=== PATIENT | female | born 1995 | race Hispanic/Latino ===

== ENCOUNTER 2019-03-26 23:19 | Emergency (ER) | payer OTHER ==
[2019-03-27] MEDS ORDERED: KETOROLAC 30 MG/ML INJ ONE (00:02)
[2019-03-27] MEDS ORDERED: dexAMETHasone 10 MG/ML VIAL ONE (00:02)
--- NOTE | 2019-03-27 01:46 | ER ---
Nurse's Notes [facility] Name: Leighann Greenwood Age: 23 yrs Sex: Female : 1995 Arrival Date: 03/26/2019 Time: 23:25 Bed 18 Private MD: Diagnosis: Pain in left lower leg Presentation: 03/26 23:31 Presenting complaint: Patient states: [place] when she tried to ea jump on a tube and felt like she pulled something on her left calf. Pt reports swelling and pain to left calf states "it feels like it's tight and wants to cramp". Transition of care: patient was not received from another setting of care. Onset of symptoms was March 26, 2019. Risk Assessment: Do you want to hurt yourself or someone else? Patient reports no desire to harm self or others. Initial Sepsis Screen: Does the patient meet any 2 criteria? No. Patient's initial sepsis screen is negative. Does the patient have a suspected source of infection? No. Patient's initial sepsis screen is negative. Care prior to arrival: None. 23:31 Method Of Arrival: Ambulatory ea 23:31 Acuity: DUSTY 4 ea Triage Assessment: 23:42 General: Appears uncomfortable, Behavior is appropriate for age. Injury Description: ea swelling to left calf. Historical: - Allergies: 23:39 Azo; ea - Home Meds: 23:39 None [Active]; ea - PMHx: 23:39 None; ea - PSHx: 23:39 None; ea - Immunization history:: Adult Immunizations up to date. - Social history:: Smoking status: Patient/guardian denies using tobacco. - Ebola Screening: : No symptoms or risks identified at this time. Screenin:36 Abuse screen: Denies threats or abuse. Nutritional screening: No deficits noted. ea Tuberculosis screening: No symptoms or risk factors identified. Fall Risk None identified. Assessment: 23:40 General: Appears uncomfortable, Behavior is appropriate for age. Pain: Complains of ea pain in left calf. Neuro: Level of Consciousness is awake, alert, obeys commands, Oriented to person, place, time, situation. Cardiovascular: Patient's skin is warm and dry. Respiratory: Airway is patent Respiratory effort is even, unlabored, Respiratory pattern is regular, symmetrical. Derm: Skin is pink, warm \\T\\ dry. Musculoskeletal: Circulation, motion, and sensation intact. 03/27 00:53 Reassessment: Patient and/or family updated on plan of care and expected duration. Pain ea level reassessed. Patient is alert, oriented x 3, equal unlabored respirations, skin warm/dry/pink. 01:50 Reassessment: Patient and/or family updated on plan of care and expected duration. Pain ea level reassessed. Patient is alert, oriented x 3, equal unlabored respirations, skin warm/dry/pink. Discharge instruction given to patient, verbalized the understanding of instruction. Pt left ED with crutches, pt tolerating well. Vital Signs: 03/26 23:39 BP 139 / 82; Pulse 82; Resp 18; Temp 98.3; Pulse Ox 97% ; Weight 104.33 kg; Height 5 ea ft. 6 in. (167.64 cm); Pain 9/10; 03/27 00:53 BP 117 / 78; Pulse 80; Resp 18; Pulse Ox 98% ; ea 01:45 BP 113 / 74; Pulse 82; Resp 18; Temp 98; Pulse Ox 98% ; ea 03/26 23:39 Body Mass Index 37.12 (104.33 kg, 167.64 cm) ea ED Course: 03/26 23:25 Patient arrived in ED. ag3 23:29 Barry Aguillon NP is PHCP. pm1 23:29 Migel Denson MD is Attending Physician. pm1 23:31 Brittany Reynolds RN is Primary Nurse. ea 23:36 Triage completed. ea 23:36 Patient has correct armband on for positive identification. Bed in low position. Call ea light in reach. Side rails up X2. 23:41 Arm band placed on right wrist. Patient placed in an exam room, on a stretcher, on ea pulse oximetry. 03/27 00:47 X-ray completed. Portable x-ray completed in exam room. Patient tolerated procedure kw well. 01:15 Tib Fib Left XRAY In Process Unspecified. EDMS 01:52 No provider procedures requiring assistance completed. Patient did not have IV access ea during this emergency room visit. Administered Medications: 00:24 Drug: TORadol 60 mg Route: IM; Site: right gluteus; ea 01:52 Follow up: Response: No adverse reaction; Pain is decreased ea 00:24 Drug: Decadron 10 mg Route: IM; Site: left gluteus; ea 01:52 Follow up: Response: No adverse reaction; Pain is decreased ea Outcome: 01:30 Discharge ordered by . pm1 01:52 Discharged to home ambulatory, with crutches. ea 01:52 Condition: stable 01:52 Discharge instructions given to patient, Instructed on discharge instructions, follow up and referral plans. medication usage, Demonstrated understanding of instructions, follow-up care, medications, Prescriptions given X 3. 01:55 Patient left the ED. ea Signatures: Dispatcher [employer] EDMS Bekah Olmstead Patrick, LUPILLO CONTROL DIRECTOR pm1 Brittany Reynolds RN RN Kavya Elliott ag3 Corrections: (The following items were deleted from the chart) 00:53 00:50 Reassessment: Patient and/or family updated on plan of care and expected ea duration. Pain level reassessed. Patient is alert, oriented x 3, equal unlabored respirations, skin warm/dry/pink. Awaiting on CT results ea
--- NOTE | 2019-03-27 01:47 | EDPHYS ---
Physician Documentation [facility] Name: Leighann Greenwood Age: 23 yrs Sex: Female : 1995 Arrival Date: 03/26/2019 Time: 23:25 Bed 18 Private MD: ED Physician Migel Denson HPI: 03/27 00:01 This 23 yrs old Female presents to ER via Ambulatory with complaints of Left pm1 Leg Injury. 00:01 The patient presents with pain, that is acute. The complaints affect the left calf. pm1 Context: The problem was sustained outdoors, resulted from Patient sitting on inner tube and attempted to adjust her self on it by kicking out her legs. [place] a pop on her left calf area. Onset: The symptoms/episode began/occurred today. Modifying factors: the symptoms are aggravated by weight bearing. Associated signs and symptoms: Pertinent negatives fever, numbness, swelling, tingling. Treatment prior to arrival includes: no previous treatment. Severity of symptoms: in the emergency department the symptoms are unchanged. The patient has not experienced similar symptoms in the past. The patient has not recently seen a physician. Historical: - Allergies: 03/26 23:39 Azo; ea - Home Meds: 23:39 None [Active]; ea - PMHx: 23:39 None; ea - PSHx: 23:39 None; ea - Immunization history:: Adult Immunizations up to date. - Social history:: Smoking status: Patient/guardian denies using tobacco. - Ebola Screening: : No symptoms or risks identified at this time. ROS: 03/27 00:06 Constitutional: Negative for fever, chills, and weight loss, Eyes: Negative for injury, pm1 pain, redness, and discharge, ENT: Negative for injury, pain, and discharge, Neck: Negative for injury, pain, and swelling, Cardiovascular: Negative for chest pain, palpitations, and edema, Respiratory: Negative for shortness of breath, cough, wheezing, and pleuritic chest pain, Abdomen/GI: Negative for abdominal pain, nausea, vomiting, diarrhea, and constipation, Back: Negative for injury and pain. Skin: Negative for injury, rash, and discoloration, Neuro: Negative for headache, weakness, numbness, tingling, and seizure. MS/extremity: Positive for pain, of the left calf, Negative for decreased range of motion, deformity. Exam: 00:06 Constitutional: This is a well developed, well nourished patient who is awake, alert, pm1 and in no acute distress. Head/Face: Normocephalic, atraumatic. Neck: Trachea midline, no thyromegaly or masses palpated, and no cervical lymphadenopathy. Supple, full range of motion without nuchal rigidity, or vertebral point tenderness. No Meningismus. Chest/axilla: Normal chest wall appearance and motion. Nontender with no deformity. No lesions are appreciated. Cardiovascular: Regular rate and rhythm with a normal S1 and S2. No gallops, murmurs, or rubs. Normal PMI, no JVD. No pulse deficits. Respiratory: Lungs have equal breath sounds bilaterally, clear to auscultation and percussion. No rales, rhonchi or wheezes noted. No increased work of breathing, no retractions or nasal flaring. Abdomen/GI: Soft, non-tender, with normal bowel sounds. No distension or tympany. No guarding or rebound. No evidence of tenderness throughout. Back: No spinal tenderness. No costovertebral tenderness. Full range of motion. Skin: Warm, dry with normal turgor. Normal color with no rashes, no lesions, and no evidence of cellulitis. 00:06 Musculoskeletal/extremity: Extremities: grossly normal except: noted in the left calf: tenderness, There is no evidence of decreased ROM, deformity, swelling, ROM: no acute changes, Circulation is intact in all extremities. Vital Signs: 03/26 23:39 BP 139 / 82; Pulse 82; Resp 18; Temp 98.3; Pulse Ox 97% ; Weight 104.33 kg; Height 5 ea ft. 6 in. (167.64 cm); Pain 9/10; 03/27 00:53 BP 117 / 78; Pulse 80; Resp 18; Pulse Ox 98% ; ea 01:45 BP 113 / 74; Pulse 82; Resp 18; Temp 98; Pulse Ox 98% ; ea 03/26 23:39 Body Mass Index 37.12 (104.33 kg, 167.64 cm) ea MDM: 03/26 23:46 Patient medically screened. pm1 03/27 01:29 Data reviewed: vital signs. Data interpreted: Pulse oximetry: on room air is 98 %. pm1 Interpretation: normal. Counseling: I had a detailed discussion with the patient and/or guardian regarding: the historical points, exam findings, and any diagnostic results supporting the discharge/admit diagnosis, radiology results, the need for outpatient follow up, to return to the emergency department if symptoms worsen or persist or if there are any questions or concerns that arise at home. 03/27 00:33 Order name: Tib Fib Left XRAY pm1 03/27 01:36 Order name: Crutches; Complete Time: 01:52 pm1 Administered Medications: 00:24 Drug: TORadol 60 mg Route: IM; Site: right gluteus; ea 01:52 Follow up: Response: No adverse reaction; Pain is decreased ea 00:24 Drug: Decadron 10 mg Route: IM; Site: left gluteus; ea 01:52 Follow up: Response: No adverse reaction; Pain is decreased ea Disposition: 10:54 Co-signature as Attending Physician, Migel Denson MD I agree with the assessment and tw4 plan of care. Disposition: 03/27/19 01:30 Discharged to Home. Impression: Pain in left lower leg. - Condition is Stable. - Discharge Instructions: Crutch Use, Musculoskeletal Pain. - Prescriptions for Cyclobenzaprine 10 mg Oral Tablet - take 1 tablet by ORAL route every 8 hours As needed; 30 tablet. Medrol ([place]) 4 mg Oral Tablets, Dose Pack - take 1 tablet by ORAL route as directed - follow package instructions; 1 packet. Tylenol- Codeine #3 300-30 mg Oral Tablet - take 2 tablets by ORAL route every 6 hours As needed; 20 tablet. - Medication Reconciliation Form, Thank You Letter, Antibiotic Education, Prescription Opioid Use form. - Follow up: Emergency Department; When: As needed; Reason: Worsening of condition. Follow up: Private Physician; When: 2 - 3 days; Reason: Recheck today's complaints, Continuance of care, Re-evaluation by your physician. - Problem is new. - Symptoms have improved. Signatures: Dispatcher [employer] EDMS Barry Aguillon, CIGAR PATCHER CIGAR PATCHER pm1 Brittany Reynolds, RN Migel Granados ea, MD MD tw4 Corrections: (The following items were deleted from the chart) 01:55 01:30 03/27/2019 01:30 Discharged to Home. Impression: Pain in left lower leg. ea Condition is Stable. Forms are Medication Reconciliation Form, Thank You Letter, Antibiotic Education, Prescription Opioid Use. Follow up: Emergency Department; When: As needed; Reason: Worsening of condition. Follow up: Private Physician; When: 2 - 3 days; Reason: Recheck today's complaints, Continuance of care, Re-evaluation by your physician. Problem is new. Symptoms have improved. pm1
--- NOTE | 2019-03-27 10:13 | RAD REPORT ---
EXAM DESCRIPTION: RAD - Tib Fib Left - 03/27/2019 12:50 am CLINICAL HISTORY: Trauma, calf pain COMPARISON: None. FINDINGS: No fracture is identified. There is no dislocation or periosteal reaction noted. No acute or suspicious bony finding. No gross abnormality of the partially imaged knee and ankle joints. In the area of the pain posterolateral upper calf there is no foreign body, air or abnormal calcifica tion. No gross evidence of a soft tissue hematoma or mass. IMPRESSION: Negative left tibia & fibula examination. In the area of pain no gross evidence for hematoma or mass. If the patient continues to have a unexplained upper left leg pain, outpatient MRI imaging could be p erformed to evaluate for muscle or tendon injury.
== END 2019-03-27 01:55 | disposition home or self-care (01) ==
LOC: ER 23:19
DX: M79.662 Pain in left lower leg (principal); X50.9XXA Other and unspecified overexertion or strenuous movements or postures, initial encounter; Y93.89 Activity, other specified; Y92.830 Public park as the place of occurrence of the external cause
CPT/HCPCS: 73590; 96372; 99284; J1100

== ENCOUNTER 2019-04-12 17:54 | Emergency (ER) | payer OTHER ==
--- NOTE | 2019-04-12 18:28 | EDPHYS ---
Physician Documentation [facility] Name: Leighann Greenwood Age: 23 yrs Sex: Female : 1995 Arrival Date: 04/12/2019 Time: 17:57 Bed 5 Private MD: ED Physician Juan José Madison HPI: 04/12 18:25 This 23 yrs old Female presents to ER via Wheelchair with complaints of Leg kb Pain. 18:25 The patient presents with an injury, pain, tenderness. The complaints affect the left kb leg. Context: uses crutches. Onset: The symptoms/episode began/occurred 3 week(s) ago. Modifying factors: The symptoms are alleviated by nothing. the symptoms are aggravated by movement, weight bearing, bending knee. Associated signs and symptoms: The patient has no apparent associated signs or symptoms. Treatment prior to arrival includes: prescription medications, codeine, muscle relaxant. Severity of symptoms: At their worst the symptoms were moderate, in the emergency department the symptoms are unchanged. The patient has not experienced similar symptoms in the past. The patient has not recently seen a physician. Pt reports she was here 3 weeks ago and told that she tore her muscle. Sent home with medications and crutches and told to follow up with PCP. States she did follow up and he ordered a MRI but insurance wouldn't approve it. Has an appt with ortho next week but didn't want to wait any longer so she came back to see if there was anything else we could do. Historical: - Allergies: 18:20 Azo; tw2 - Home Meds: 18:20 cyclobenzaprine 10 mg Oral tab 1 tab 2 times per day [Active]; acetaminophen-codeine tw2 300-30 mg Oral tab 1 tab every 4 hours [Active]; - PMHx: 18:20 None; tw2 - PSHx: 18:20 None; tw2 - Immunization history:: Adult Immunizations. - Social history:: Smoking status: . - Ebola Screening: : Patient denies travel to an Ebola-affected area in the 21 days before illness onset. ROS: 18:24 Constitutional: Negative for fever, chills, and weight loss, Cardiovascular: Negative kb for chest pain, palpitations, and edema, Respiratory: Negative for shortness of breath, cough, wheezing, and pleuritic chest pain, Abdomen/GI: Negative for abdominal pain, nausea, vomiting, diarrhea, and constipation, Skin: Negative for injury, rash, and discoloration, Neuro: Negative for headache, weakness, numbness, tingling, and seizure. 18:24 MS/extremity: Positive for decreased range of motion, pain. Exam: 18:24 Constitutional: This is a well developed, well nourished patient who is awake, alert, kb and in no acute distress. Head/Face: Normocephalic, atraumatic. Chest/axilla: Normal chest wall appearance and motion. Nontender with no deformity. No lesions are appreciated. Cardiovascular: Regular rate and rhythm with a normal S1 and S2. No gallops, murmurs, or rubs. Normal PMI, no JVD. No pulse deficits. Respiratory: Lungs have equal breath sounds bilaterally, clear to auscultation and percussion. No rales, rhonchi or wheezes noted. No increased work of breathing, no retractions or nasal flaring. Abdomen/GI: Soft, non-tender, with normal bowel sounds. No distension or tympany. No guarding or rebound. No evidence of tenderness throughout. Skin: Warm, dry with normal turgor. Normal color with no rashes, no lesions, and no evidence of cellulitis. Neuro: Awake and alert, GCS 15, oriented to person, place, time, and situation. Cranial nerves II-XII grossly intact. Motor strength 5/5 in all extremities. Sensory grossly intact. Cerebellar exam normal. Normal gait. 18:24 Musculoskeletal/extremity: Extremities: grossly normal except: noted in the left leg: pain, ROM: limited active range of motion due to pain, in the left leg, Circulation is intact in all extremities. Sensation intact. Weight bearing: can bear weight with assistance only, uses crutch. Vital Signs: 18:18 BP 125 / 87; Pulse 90; Resp 17; Temp 97.8(TE); Pulse Ox 100% on R/A; tw2 MDM: 18:14 Patient medically screened. kb 18:23 Data reviewed: vital signs, nurses notes. Data interpreted: Pulse oximetry: on room air kb is 100 %. Interpretation: normal. Counseling: I had a detailed discussion with the patient and/or guardian regarding: the historical points, exam findings, and any diagnostic results supporting the discharge/admit diagnosis, the need for outpatient follow up, a orthopedic surgeon, to return to the emergency department if symptoms worsen or persist or if there are any questions or concerns that arise at home. Administered Medications: 18:29 Drug: [place] (7.5 mg-325 mg) 1 tabs Route: PO; sg Disposition: 04/13 06:58 Co-signature as Attending Physician, Juan José Madison MD. rn Disposition: 04/12/19 18:28 Discharged to Home. Impression: Pain in left leg. - Condition is Stable. - Discharge Instructions: Musculoskeletal Pain. - Prescriptions for orphenadrine citrate 100 mg Oral Tablet Sustained Release - take 1 tablet by ORAL route 2 times per day As needed; 20 tablet. - Medication Reconciliation Form, Thank You Letter, Antibiotic Education, Prescription Opioid Use form. - Follow up: Emergency Department; When: As needed; Reason: Worsening of condition. Follow up: Private Physician; When: 2 - 3 days; Reason: Recheck today's complaints, Continuance of care, Re-evaluation by your physician. Signatures: Deanne Stephens, MELISSA PETER-Peyman Rueda RN RN Juan José Madison MD MD rn Calderon, Audri, RN RN aa5 Shayna Arcos RN RN tw2 Corrections: (The following items were deleted from the chart) 04/12 18:56 18:28 04/12/2019 18:28 Discharged to Home. Impression: Pain in left leg. Condition is aa5 Stable. Forms are Medication Reconciliation Form, Thank You Letter, Antibiotic Education, Prescription Opioid Use. Follow up: Emergency Department; When: As needed; Reason: Worsening of condition. Follow up: Private Physician; When: 2 - 3 days; Reason: Recheck today's complaints, Continuance of care, Re-evaluation by your physician. kb
--- NOTE | 2019-04-12 18:28 | ER ---
Nurse's Notes [facility] Name: Leighann Greenwood Age: 23 yrs Sex: Female : 1995 Arrival Date: 04/12/2019 Time: 17:57 Bed 5 Private MD: Diagnosis: Pain in left leg Presentation: 04/12 18:15 Presenting complaint: Patient states: almost 3 weeks ago i came in because i was at [address] and fell into a tube and heard a pop in LEFT leg, my doctor said i had a torn muscle, my doctor told me that they needed an MRI, but my insurance will not cover it, they are having me see an occupational therapy specialist but that's in a week, i couldn't even walk with my crutches today. Transition of care: patient was not received from another setting of care. Onset of symptoms was April 12, 2019. Risk Assessment: Do you want to hurt yourself or someone else? Patient reports no desire to harm self or others. Initial Sepsis Screen: Does the patient meet any 2 criteria? No. Patient's initial sepsis screen is negative. Does the patient have a suspected source of infection? No. Patient's initial sepsis screen is negative. Care prior to arrival: None. 18:15 Method Of Arrival: Wheelchair tw2 18:15 Acuity: DUSTY 4 tw2 Triage Assessment: 18:18 General: Appears in no apparent distress. Behavior is calm, cooperative, appropriate tw2 for age. Pain: Complains of pain in left leg. Historical: - Allergies: 18:20 Azo; tw2 - Home Meds: 18:20 cyclobenzaprine 10 mg Oral tab 1 tab 2 times per day [Active]; acetaminophen-codeine tw2 300-30 mg Oral tab 1 tab every 4 hours [Active]; - PMHx: 18:20 None; tw2 - PSHx: 18:20 None; tw2 - Immunization history:: Adult Immunizations. - Social history:: Smoking status: . - Ebola Screening: : Patient denies travel to an Ebola-affected area in the 21 days before illness onset. Screenin:20 Abuse screen: Denies threats or abuse. Nutritional screening: No deficits noted. tw2 Tuberculosis screening: No symptoms or risk factors identified. Fall Risk None identified. Assessment: 18:23 General: Appears in no apparent distress. well groomed, well developed, well nourished, sg Behavior is calm, cooperative, appropriate for age. Pain: Complains of pain in left leg Quality of pain is described as aching, sharp, throbbing, Pain began. Neuro: Level of Consciousness is awake, alert, obeys commands, Oriented to person, place, time, [employer] Vendor are equal bilaterally Moves all extremities. Gait is steady, Speech is normal, Facial symmetry appears normal, Pupils are PERRLA. Cardiovascular: Patient's skin is warm and dry. Chest pain is denied. Respiratory: Airway is patent Respiratory effort is even, unlabored, Respiratory pattern is regular, symmetrical. GI: Abdomen is round non-distended, obese, Reports tolerance of fluids, tolerance of food. : No signs and/or symptoms were reported regarding the genitourinary system. EENT: No signs and/or symptoms were reported regarding the EENT system. Derm: Skin is pink, warm \T\ dry. Musculoskeletal: Circulation, motion, and sensation intact. Range of motion: limited in left knee due to pain Reports was unable to get up and around today even while using crutches. Vital Signs: 18:18 BP 125 / 87; Pulse 90; Resp 17; Temp 97.8(TE); Pulse Ox 100% on R/A; tw2 ED Course: 17:57 Patient arrived in ED. mr 18:14 Deanne Stephens [facility]-C [facility]. kb 18:14 Juan José Madison MD is Attending Physician. kb 18:18 Triage completed. tw2 18:18 Arm band placed on. tw2 18:23 Peyman Siddiqui, RN is Primary Nurse. sg 18:26 No provider procedures requiring assistance completed. Patient did not have IV access sg during this emergency room visit. Administered Medications: 18:29 Drug: [place] (7.5 mg-325 mg) 1 tabs Route: PO; sg Outcome: 18:28 Discharge ordered by . kb 18:56 Patient left the ED. aa5 Signatures: Deanne Stephens FNP-C FNP-Peyman Rueda RN RN sg Kailee Richards, DEA Tee RN aa5 Shayna Arcos RN RN tw2
[2019-04-12] MEDS ORDERED: HYDROCODONE/APAP 7.5/325 MG TAB ONE (18:29)
== END 2019-04-12 18:56 | disposition home or self-care (01) ==
LOC: ER 17:54
DX: M79.605 Pain in left leg (principal); Z88.8 Allergy status to other drugs, medicaments and biological substances
CPT/HCPCS: 99282

== ENCOUNTER 2019-05-25 23:30 | Emergency (ER) | payer OTHER ==
[2019-05-26 00:20] LABS: Urine Culture Reflex Order NOT NEEDED
[2019-05-26 00:21] LABS: Urine Bacteria >50 /HPF (<20); Urine RBC <5 /HPF (NONE SEEN)
[2019-05-26 00:35] LABS: Absolute Lymphocytes (CBC) 3.2 K/uL (0.7-4.9); Basophils % 0.3 % (0-1.3); Hematocrit 33.9 % (36.0-45.0); Lymphocytes % 31.6 % (15.3-44.8); MPV 8.5 fL (7.6-11.3); RBC Red Blood Cell Count 4.05 M/uL (3.86-4.86)
[2019-05-26] MEDS ORDERED: CEFTRIAXONE/SWI 1gm 1 GM/10 ML SYR ONE (00:38)
[2019-05-26] MEDS ORDERED: CALCIUM CARBONATE CHEW 500MG TAB ONE (01:12)
[2019-05-26 01:18] LABS: BUN Blood Urea Nitrogen 12 mg/dL (7-18); Bicarbonate 27 mmol/L (21-32); Glucose Level 102 mg/dL (74-106); Potassium 3.7 mmol/L (3.5-5.1); Sodium Level 138 mmol/L (136-145)
[2019-05-26 01:21] LABS: Urine Blood 2+ (NEG); Urine Glucose NEGATIVE (NEG); Urine Protein NEGATIVE (NEG); Urine Specific Gravity >1.030 (1.005-1.030)
--- NOTE | 2019-05-26 02:18 | ER ---
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 Denies vaginal bleeding. Reports confirmed IUP via u/s last week. States, "I was just concerned because I never had this with my other pregnancies.". Transition of care: patient was not received from another setting of care. Onset of symptoms was May 25, 2019. Risk Assessment: Do you want to hurt yourself or someone else? Patient reports no desire to harm self or others. Initial Sepsis Screen: Does the patient meet any 2 criteria? No. Patient's initial sepsis screen is negative. Does the patient have a suspected source of infection? No. Patient's initial sepsis screen is negative. Care prior to arrival: None. 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 - Social history:: Smoking status: Patient/guardian denies using tobacco. - Ebola Screening: : No symptoms or risks identified at this time. Screenin:49 Abuse screen: Denies threats or abuse. Denies injuries from another. Nutritional aa1 screening: No deficits noted. Tuberculosis screening: No symptoms or risk factors identified. Fall Risk None identified. Assessment: 23:49 General: Appears in no apparent distress. comfortable, Behavior is calm, cooperative, aa1 appropriate for age. Pain: Complains of pain in suprapubic area Pain currently is 4 out of 10 on a pain scale. Quality of pain is described as crampy, Pain began 1 hour ago. Is continuous. Neuro: Level of Consciousness is awake, alert, obeys commands, Oriented to person, place, time, situation, Moves all extremities. Full function Gait is steady. Respiratory: Airway is patent Respiratory effort is even, unlabored, Respiratory pattern is regular, symmetrical. GI: Abdomen is non-distended, Bowel sounds present X 4 quads. Abd is soft and non tender X 4 quads. Reports cramping. : Reports cramping, Denies vaginal bleeding. EENT: No signs and/or symptoms were reported regarding the EENT system. Derm: Skin is intact, is healthy with good turgor, Skin is pink, warm \\T\\ dry. Musculoskeletal: Circulation, motion, and sensation intact. Capillary refill < 3 seconds. 05/26 00:42 Reassessment: Patient appears in no apparent distress at this time. Patient and/or aa1 family updated on plan of care and expected duration. Pain level reassessed. Patient is alert, oriented x 3, equal unlabored respirations, skin warm/dry/pink. Awaiting lab results. 01:20 Reassessment: Patient appears in no apparent distress at this time. Patient and/or aa1 family updated on plan of care and expected duration. Pain level reassessed. Patient is alert, oriented x 3, equal unlabored respirations, skin warm/dry/pink. Still awaiting completed lab results. 02:20 Reassessment: Patient appears in no apparent distress at this time. No changes from ch previously documented assessment. Patient and/or family updated on plan of care and expected duration. Pain level reassessed. Patient is alert, oriented x 3, equal unlabored respirations, skin warm/dry/pink. Vital Signs: 05/25 23:46 BP 118 / 68; Pulse 82; Resp 16; Temp 97.8; Pulse Ox 100% on R/A; Weight 106.59 kg; aa1 Height 5 ft. 6 in. (167.64 cm); Pain 11/16; 05/26 00:42 BP 113 / 61; Pulse 81; Resp 16; Pulse Ox 100% on R/A; aa1 01:30 BP 105 / 64; Pulse 78; Resp 16; Pulse Ox 100% on R/A; aa1 02:20 BP 112 / 54; Pulse 72; Resp 14; Temp 98.5; Pulse Ox 99% on R/A; Pain 08/18; ch 05/25 23:46 Body Mass Index 37.93 (106.59 kg, 167.64 cm) aa1 ED Course: 05/25 23:31 Patient arrived in ED. es 23:39 Nicolle Hough [facility]-C [facility]. snw 23:39 Darrius Morris MD is Attending Physician. snw 23:43 Isabela Izaguirre, RN is Primary Nurse. aa1 23:45 Triage completed. aa1 23:46 Arm band placed on right wrist. aa1 23:49 Patient has correct armband on for positive identification. Bed in low position. Call aa1 light in reach. Pulse ox on. NIBP on. 23:49 Urine collected: clean catch specimen, clear. aa1 05/26 00:10 Initial lab(s) drawn, by ky, sent to lab. Inserted saline lock: 20 gauge in right aa1 forearm, using aseptic technique. Blood collected. 01:44 Report given to Thu Callaway RN. aa1 02:20 No provider procedures requiring assistance completed. IV discontinued, intact, ch bleeding controlled, No redness/swelling at site. Pressure dressing applied. 02:26 Thu Callaway, RN is Primary Nurse. Administered Medications: 00:45 Drug: Rocephin 1 grams Route: IV; Rate: calculated rate; Site: right forearm; aa1 00:55 Follow up: IV Status: Completed infusion; IV Intake: 10ml 01:16 Drug: Tums 500 mg Route: PO; 01:30 Follow up: Response: No adverse reaction ch Intake: 00:55 IV: 10ml; Total: 10ml. Outcome: 02:17 Discharge ordered by . snw 02:20 Discharged to home ambulatory. 02:20 Condition: stable 02:20 Discharge instructions given to patient, Instructed on discharge instructions, follow up and referral plans. medication usage, Demonstrated understanding of instructions, follow-up care, medications, Prescriptions given X 1. 02:26 Patient left the ED. Signatures: Thu Callaway RN RN Isabela Izaguirre RN RN aa Nicolle Hough FNP-C FNP-Csnw Dona Castellon es
--- NOTE | 2019-05-26 02:18 | EDPHYS ---
Physician Documentation [facility] Name: Leighann Greenwood Age: 23 yrs Sex: Female : 1995 Arrival Date: 05/25/2019 Time: 23:31 Bed 15 Private MD: ED Physician Darrius Morris HPI: 05/26 00:11 This 23 yrs old Female presents to ER via Ambulatory with complaints of snw Abdominal Cramping, 5WKS PREG. 00:11 The patient presents with lower abd cramps. Onset: The symptoms/episode began/occurred snw 1 week(s) ago, and became persistent. Associated signs and symptoms: Pertinent positives: cramping, Pertinent negatives: vaginal bleeding. Severity of symptoms: At their worst the symptoms were mild, moderate. The patient has not experienced similar symptoms in the past. last week, us showed IUP. 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 - Social history:: Smoking status: Patient/guardian denies using tobacco. - Ebola Screening: : No symptoms or risks identified at this time. ROS: 05/26 00:10 Constitutional: Negative for fever, chills, and weight loss, Eyes: Negative for injury, snw pain, redness, and discharge, ENT: Negative for injury, pain, and discharge, Neck: Negative for injury, pain, and swelling, Cardiovascular: Negative for chest pain, palpitations, and edema, Respiratory: Negative for shortness of breath, cough, wheezing, and pleuritic chest pain, Back: Negative for injury and pain, MS/Extremity: Negative for injury and deformity, Skin: Negative for injury, rash, and discoloration, Neuro: Negative for headache, weakness, numbness, tingling, and seizure, Psych: Negative for depression, anxiety, suicide ideation, homicidal ideation, and hallucinations. Abdomen/GI: Positive for abdominal cramps. : Positive for no vaginal bleeding. Exam: 00:09 Constitutional: This is a well developed, obese patient who is awake, alert, and in no snw acute distress. Head/Face: Normocephalic, atraumatic. Eyes: Pupils equal round and reactive to light, extra-ocular motions intact. Lids and lashes normal. Conjunctiva and sclera are non-icteric and not injected. Cornea within normal limits. Periorbital areas with no swelling, redness, or edema. ENT: Nares patent. No nasal discharge, no septal abnormalities noted. Tympanic membranes are normal and external auditory canals are clear. Oropharynx with no redness, swelling, or masses, exudates, or evidence of obstruction, uvula midline. Mucous membranes moist. Neck: Trachea midline, no thyromegaly or masses palpated, and no cervical lymphadenopathy. Supple, full range of motion without nuchal rigidity, or vertebral point tenderness. No Meningismus. Chest/axilla: Normal chest wall appearance and motion. Nontender with no deformity. No lesions are appreciated. Cardiovascular: Regular rate and rhythm with a normal S1 and S2. No gallops, murmurs, or rubs. Normal PMI, no JVD. No pulse deficits. Respiratory: Lungs have equal breath sounds bilaterally, clear to auscultation and percussion. No rales, rhonchi or wheezes noted. No increased work of breathing, no retractions or nasal flaring. Back: No spinal tenderness. No costovertebral tenderness. Full range of motion. Skin: Warm, dry with normal turgor. Normal color with no rashes, no lesions, and no evidence of cellulitis. MS/ Extremity: Pulses equal, no cyanosis. Neurovascular intact. Full, normal range of motion. Neuro: Awake and alert, GCS 15, oriented to person, place, time, and situation. Cranial nerves II-XII grossly intact. Motor strength 5/5 in all extremities. Sensory grossly intact. Cerebellar exam normal. Normal gait. Psych: Awake, alert, with orientation to person, place and time. Behavior, mood, and affect are within normal limits. 00:09 Abdomen/GI: Inspection: obese Bowel sounds: normal, Palpation: mild abdominal tenderness, moderate abdominal tenderness, in the suprapubic area. Vital Signs: 05/25 23:46 BP 118 / 68; Pulse 82; Resp 16; Temp 97.8; Pulse Ox 100% on R/A; Weight 106.59 kg; aa1 Height 5 ft. 6 in. (167.64 cm); Pain 4/10; 05/26 00:42 BP 113 / 61; Pulse 81; Resp 16; Pulse Ox 100% on R/A; aa1 01:30 BP 105 / 64; Pulse 78; Resp 16; Pulse Ox 100% on R/A; aa1 02:20 BP 112 / 54; Pulse 72; Resp 14; Temp 98.5; Pulse Ox 99% on R/A; Pain 1/10; ch 05/25 23:46 Body Mass Index 37.93 (106.59 kg, 167.64 cm) aa1 MDM: 05/25 23:41 Patient medically screened. snw 05/26 02:17 Data reviewed: vital signs, nurses notes. Data interpreted: Pulse oximetry: on room air snw is 100 %. Interpretation: normal. Counseling: I had a detailed discussion with the patient and/or guardian regarding: the historical points, exam findings, and any diagnostic results supporting the discharge/admit diagnosis, lab results, the need for outpatient follow up, to return to the emergency department if symptoms worsen or persist or if there are any questions or concerns that arise at home. Special discussion: Based on the patient's Hx, exam, and Dx evaluation, there is no indication for emergent surgery or inpatient Tx. It is understood by the patient/guardian that if the Sx's persist or worsen they need to return immediately for re-evaluation. Based on the history and exam findings, there is no indication for further emergent testing or inpatient evaluation. I discussed with the patient/guardian the need to see the OB Gyne specialist for further evaluation of the symptoms. 05/25 23:41 Order name: Urine Culture snw 05/26 00:01 Order name: Urine Dipstick--Ancillary (enter results); Complete Time: :40 em1 05/26 00:01 Order name: Urine --Ancillary (enter results); Complete Time: :40 em1 05/26 00:12 Order name: Urine Microscopic Only; Complete Time: 00:29 EDMS 05/26 00:12 Order name: Urine Culture EDMS 05/26 00:23 Order name: Basic Metabolic Panel EDMS 05/26 00:23 Order name: HCG, Quantitative EDMS 05/26 00:23 Order name: CBC with Automated Diff; Complete Time: 00:59 EDMS 05/26 00:23 Order name: ABO/RH typing; Complete Time: 01:40 EDMS 05/25 23:41 Order name: Urine Test (obtain specimen); Complete Time: 23:52 snw 05/25 23:41 Order name: Urine Dipstick-Ancillary (obtain specimen); Complete Time: 23:52 snw 05/25 23:58 Order name: IV Saline Lock; Complete Time: 00:19 snw 05/25 23:58 Order name: Labs collected and sent; Complete Time: 00:19 snw 05/25 23:58 Order name: NPO; Complete Time: 00:03 snw Administered Medications: 00:45 Drug: Rocephin 1 grams Route: IV; Rate: calculated rate; Site: right forearm; aa 00:55 Follow up: IV Status: Completed infusion; IV Intake: 10ml 01:16 Drug: Tums 500 mg Route: PO; 01:30 Follow up: Response: No adverse reaction Disposition: 06:15 Co-signature as Attending Physician, Darrius Morris MD I agree with the assessment and kdr plan of care. Disposition: 05/26/19 02:17 Discharged to Home. Impression: state, Urinary tract infection, site not specified. - Condition is Stable. - Discharge Instructions: Abdominal Pain During , First Trimester of , and Urinary Tract Infection. - Prescriptions for Augmentin 875- 125 mg Oral Tablet - take 1 tablet by ORAL route every 12 hours for 10 days; 20 tablet. Vitamin 27- 0.8 mg Oral Tablet - take 1 tablet by ORAL route once daily; 60 tablet. - Work release form, Medication Reconciliation Form, Thank You Letter, Antibiotic Education, Prescription Opioid Use form. - Follow up: Private Physician; When: 2 - 3 days; Reason: Recheck today's complaints, Continuance of care, Re-evaluation by your physician. Follow up: Emergency Department; When: As needed; Reason: Worsening of condition. Signatures: Dis[facility] Thu Callaway RN DEA Isabela Izaguirre RN RN [facility] Darrius Morris MD MD kdr Nicolle Hough, STEAM DISTRIBUTION SUPERVISOR-C STEAM DISTRIBUTION SUPERVISOR-Csnw Corrections: (The following items were deleted from the chart) 00:43 00:40 QUANTITATIVE HCG+C.LAB.BRZ ordered. EDMS EDMS 00:43 00:40 BASIC METABOLIC PANEL+C.LAB.BRZ ordered. EDMS EDMS 00:43 00:40 CBC+H.LAB.BRZ ordered. EDMS EDMS 00:44 00:40 UA MICROSCOPIC+U.LAB.BRZ ordered. EDMS EDMS 00:47 00:39 Urine Culture ordered. EDMS EDMS 00:47 00:40 ABO/RH TYPING+BB.LAB.BRZ ordered. EDGA EDMS 02:26 02:17 05/26/2019 02:17 Discharged to Home. Impression: state; Urinary tract ch infection, site not specified. Condition is Stable. Discharge Instructions: Abdominal Pain During , First Trimester of , and Urinary Tract Infection. Prescriptions for Augmentin 875-125 mg Oral Tablet - take 1 tablet by ORAL route every 12 hours for 10 days; 20 tablet, Vitamin 27-0.8 mg Oral Tablet - take 1 tablet by ORAL route once daily; 60 tablet. and Forms are Work release form, Medication Reconciliation Form, Thank You Letter, Antibiotic Education, Prescription Opioid Use. Follow up: Private Physician; When: 2 - 3 days; Reason: Recheck today's complaints, Continuance of care, Re-evaluation by your physician. Follow up: Emergency Department; When: As needed; Reason: Worsening of condition. snw
[2019-05-26 03:03] LABS: HCG, Quantitative 4792 mIU/mL (1-3)
[2019-05-26 03:53] VITALS: TEMP 97.8; O2SAT 100
[2019-05-26 03:55] VITALS: BP 105/64
== END 2019-05-26 02:26 | disposition home or self-care (01) ==
LOC: ER 23:30
DX: O23.41 Unspecified infection of urinary tract in pregnancy, first trimester (principal)
CPT/HCPCS: 87088; 85025; 87086; 80048; 36415; 86900; 81025; 86901; 84702; 96374; 99284; J0696; 81003; 81015

== ENCOUNTER 2019-06-11 08:49 | Emergency (ER) | payer OTHER ==
[2019-06-11 09:30] LABS: Absolute Lymphocytes (CBC) 1.7 K/uL (0.7-4.9); Basophils % 0.5 % (0-1.3); Hematocrit 36.6 % (36.0-45.0); Lymphocytes % 14.4 % (15.3-44.8); MPV 8.5 fL (7.6-11.3); RBC Red Blood Cell Count 4.33 M/uL (3.86-4.86)
[2019-06-11] MEDS ORDERED: PROMETHAZINE 25 MG/ML VIAL ONE (09:30)
[2019-06-11] MEDS ORDERED: NA CHLORIDE 0.9% 1,000 ML ONE (09:30)
[2019-06-11 09:47] LABS: ALT/SGPT 29 U/L (12-78); AST/SGOT 13 U/L (15-37); Albumin 3.7 g/dL (3.4-5.0); Alkaline Phosphatase 87 U/L (45-117); BUN Blood Urea Nitrogen 6 mg/dL (7-18); Bicarbonate 25 mmol/L (21-32); Bilirubin Total 1.1 mg/dL (0.2-1.0); Glucose Level 95 mg/dL (74-106); Potassium 3.6 mmol/L (3.5-5.1); Protein, Total 8.1 g/dL (6.4-8.2); Sodium Level 138 mmol/L (136-145)
[2019-06-11 10:13] LABS: Urine RBC <5 /HPF (NONE SEEN)
[2019-06-11 10:14] LABS: Urine Bacteria <20 /HPF (<20)
[2019-06-11 10:15] LABS: Urine Culture Reflex Order NOT NEEDED
[2019-06-11 10:55] LABS: Urine Blood 2+ (NEG); Urine Glucose NEGATIVE (NEG); Urine Protein 1+ (NEG); Urine Specific Gravity >1.030 (1.005-1.030); Urine pH 5.5 (5.0-7.0)
--- NOTE | 2019-06-11 10:59 | ER ---
Nurse's Notes [facility] Name: Leighann Greenwood Age: 23 yrs Sex: Female : 1995 Arrival Date: 06/11/2019 Time: 08:50 Bed 16 Private MD: Diagnosis: Vomiting;Diarrhea, unspecified Presentation: 06/11 08:51 Presenting complaint: Patient states: Nausea, vomiting, and diarrhea x 3 days. rb1 Transition of care: patient was not received from another setting of care. Onset of symptoms was June 09, 2019. Risk Assessment: Do you want to hurt yourself or someone else? Patient reports no desire to harm self or others. Initial Sepsis Screen: Does the patient meet any 2 criteria? No. Patient's initial sepsis screen is negative. Does the patient have a suspected source of infection? Yes: Other: Currently being treated for UTI. Care prior to arrival: Medication(s) given: Generic Macrobid. 08:51 Method Of Arrival: Ambulatory rb1 08:51 Acuity: DUSTY 3 rb1 Triage Assessment: 08:51 General: Appears in no apparent distress. comfortable, Behavior is calm, cooperative, rb1 Reports 8 weeks . Pain: Complains of pain in abdomen Pain currently is 4 out of 10 on a pain scale. Aggravated by Pain from vomiting. Neuro: Level of Consciousness is awake, alert, obeys commands, Oriented to person, place, time, situation. Cardiovascular: Capillary refill < 3 seconds is brisk in bilateral fingers. Respiratory: Airway is patent Respiratory effort is even, unlabored, Respiratory pattern is regular, symmetrical. GI: Reports diarrhea, nausea, vomiting. : No signs and/or symptoms were reported regarding the genitourinary system. Derm: Skin is pink, warm \T\ dry. CHECKER IN: 08:51 LMP 04/06/2019 rb1 Historical: - Allergies: 08:51 Azo; rb1 - Home Meds: 08:51 Vitamin Oral [Active]; Generic Macrobid [Active]; rb1 - PMHx: 08:51 UTI; rb1 - PSHx: 08:51 Cholecystectomy; rb1 - Immunization history:: Adult Immunizations up to date. - Social history:: Smoking status: Patient/guardian denies using tobacco. - Ebola Screening: : Patient negative for fever greater than or equal to 101.5 degrees Fahrenheit, and additional compatible Ebola Virus Disease symptoms. Screenin:51 Abuse screen: Denies threats or abuse. Nutritional screening: No deficits noted. rb1 Tuberculosis screening: No symptoms or risk factors identified. Fall Risk None identified. Assessment: 08:51 General: See triage assessment. rb1 09:45 Reassessment: Patient appears in no apparent distress at this time. No changes from rb1 previously documented assessment. 10:11 Reassessment: Pt. was given water to drink for the PO challenge. rb1 10:42 Reassessment: Pt. felt nauseous when drinking the water so she stopped drinking it. rb1 Only drank approximately 25 ml. 11:35 Reassessment: Patient appears in no apparent distress at this time. Patient and/or rb1 family updated on plan of care and expected duration. Pain level reassessed. Patient is alert, oriented x 3, equal unlabored respirations, skin warm/dry/pink. No vomiting noted at this time. Vital Signs: 08:51 BP 107 / 65; Pulse 89; Resp 19; Temp 98.1(O); Pulse Ox 100% on R/A; Weight 106.59 kg rb1 (R); Height 5 ft. 6 in. (167.64 cm) (R); Pain 4/10; 09:50 BP 110 / 58; Pulse 75; Resp 17; Pulse Ox 100% on R/A; rb1 10:43 BP 106 / 50; Pulse 68; Resp 16; Pulse Ox 99% on R/A; rb1 11:35 BP 109 / 57; Pulse 72; Resp 16; Temp 98.3(O); Pulse Ox 99% on R/A; Pain 2/10; rb1 08:51 Body Mass Index 37.93 (106.59 kg, 167.64 cm) [facility] ED Course: 08:50 Patient arrived in ED. as 08:51 Maryanne Iqbal, RN is Primary Nurse. rb1 08:51 Arm band placed on right wrist. rb1 08:51 Patient has correct armband on for positive identification. Bed in low position. Call [facility] light in reach. Side rails up X 1. Pulse ox on. NIBP on. 08:57 Barry Aguillon NP is PHCP. pm1 08:57 Juan José Madison MD is Attending Physician. pm1 09:04 Triage completed. rb1 09:29 Initial lab(s) drawn, by me, sent to lab. Urine collected: clean catch specimen, clear. 5 Inserted saline lock: 22 gauge in right antecubital area, using aseptic technique. 09:31 CMP Sent. 5 09:31 CBC with Diff Sent. 5 09:31 Urine Microscopic Only Sent. [facility] 09:46 Warm blanket given. 5 11:38 No provider procedures requiring assistance completed. IV discontinued, intact, rb1 bleeding controlled, No redness/swelling at site. Pressure dressing applied. Administered Medications: 09:39 Drug: NS 0.9% 1000 ml Route: IV; Rate: 1000 ml; Site: right antecubital; rb1 09:39 Drug: Phenergan 12.5 mg Route: IVP; Site: right antecubital; rb1 09:55 Follow up: Response: No adverse reaction; Nausea is decreased rb1 Outcome: 10:59 Discharge ordered by MD. pm1 11:38 Discharged to home ambulatory. [facility] 11:38 Condition: stable 11:38 Discharge instructions given to patient, Instructed on discharge instructions, follow up and referral plans. medication usage, Demonstrated understanding of instructions, follow-up care, medications, Prescriptions given X 1. 11:38 Patient left the ED. rb1 Signatures: Elise Walker Rebecca, RN RN rb1 Barry Aguillon NP [facility] pm1 Tawanna Walker [facility] Corrections: (The following items were deleted from the chart) 09:11 08:51 General: Appears in no apparent distress. comfortable, Behavior is calm, rb1 cooperative, [facility] 11:37 11:35 Reassessment: Patient appears in no apparent distress at this time. Patient rb1 and/or family updated on plan of care and expected duration. Pain level reassessed. Patient is alert, oriented x 3, equal unlabored respirations, skin warm/dry/pink. rb1
--- NOTE | 2019-06-11 11:00 | EDPHYS ---
Physician Documentation [facility] Name: Leighann Greenwood Age: 23 yrs Sex: Female : 1995 Arrival Date: 06/11/2019 Time: 08:50 Bed 16 Private MD: ED Physician Juan José Madison HPI: 06/11 09:42 This 23 yrs old Female presents to ER via Ambulatory with complaints of pm1 Vomiting/Diarrhea. 09:42 The patient presents to the emergency department with nausea, vomiting, 5 times since pm1 the onset of symptoms, diarrhea, 3 times since the onset of symptoms. Onset: The symptoms/episode began/occurred yesterday. Possible causes: sick contacts, with vomiting and diarrhea and son with vomiting. Son was seen yesterday for vomiting and diagnosed with viral gastroenteritis. His vomiting has resolved. The symptoms are aggravated by nothing. The symptoms are alleviated by nothing. Associated signs and symptoms: Pertinent negatives: abdominal pain, dysuria, fever. Severity of symptoms: in the emergency department the symptoms are unchanged Pain is currently a 0 / 10. 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 - Social history:: Smoking status: Patient/guardian denies using tobacco. - Ebola Screening: : Patient negative for fever greater than or equal to 101.5 degrees Fahrenheit, and additional compatible Ebola Virus Disease symptoms. ROS: 09:42 Constitutional: Negative for fever, chills, and weight loss, Eyes: Negative for injury, pm1 pain, redness, and discharge, ENT: Negative for injury, pain, and discharge, Neck: Negative for injury, pain, and swelling, Cardiovascular: Negative for chest pain, palpitations, and edema, Respiratory: Negative for shortness of breath, cough, wheezing, and pleuritic chest pain. 09:42 Back: Negative for injury and pain, : Negative for injury, bleeding, discharge, and swelling, MS/Extremity: Negative for injury and deformity, Skin: Negative for injury, rash, and discoloration, Neuro: Negative for headache, weakness, numbness, tingling, and seizure. 09:42 Abdomen/GI: Positive for nausea, vomiting, and diarrhea, Negative for abdominal pain. Exam: 09:42 Constitutional: This is a well developed, well nourished patient who is awake, alert, pm1 and in no acute distress. Head/Face: Normocephalic, atraumatic. Neck: Trachea midline, no thyromegaly or masses palpated, and no cervical lymphadenopathy. Supple, full range of motion without nuchal rigidity, or vertebral point tenderness. No Meningismus. Chest/axilla: Normal chest wall appearance and motion. Nontender with no deformity. No lesions are appreciated. Cardiovascular: Regular rate and rhythm with a normal S1 and S2. No gallops, murmurs, or rubs. Normal PMI, no JVD. No pulse deficits. Respiratory: Lungs have equal breath sounds bilaterally, clear to auscultation and percussion. No rales, rhonchi or wheezes noted. No increased work of breathing, no retractions or nasal flaring. Abdomen/GI: Soft, non-tender, with normal bowel sounds. No distension or tympany. No guarding or rebound. No evidence of tenderness throughout. Back: No spinal tenderness. No costovertebral tenderness. Full range of motion. Skin: Warm, dry with normal turgor. Normal color with no rashes, no lesions, and no evidence of cellulitis. MS/ Extremity: Pulses equal, no cyanosis. Neurovascular intact. Full, normal range of motion. 09:42 Neuro: Orientation: is normal, Motor: is normal, moves all fours, Sensation: is normal, no obvious gross deficits, Gait: is steady, at a normal pace, without difficulty. Vital Signs: 08:51 BP 107 / 65; Pulse 89; Resp 19; Temp 98.1(O); Pulse Ox 100% on R/A; Weight 106.59 kg rb1 (R); Height 5 ft. 6 in. (167.64 cm) (R); Pain 4/10; 09:50 BP 110 / 58; Pulse 75; Resp 17; Pulse Ox 100% on R/A; rb1 10:43 BP 106 / 50; Pulse 68; Resp 16; Pulse Ox 99% on R/A; rb1 11:35 BP 109 / 57; Pulse 72; Resp 16; Temp 98.3(O); Pulse Ox 99% on R/A; Pain 2/10; rb1 08:51 Body Mass Index 37.93 (106.59 kg, 167.64 cm) rb1 MDM: 08:58 Patient medically screened. pm1 10:58 Data reviewed: vital signs. Data interpreted: Pulse oximetry: on room air is 99 %. pm1 Interpretation: normal. Counseling: I had a detailed discussion with the patient and/or guardian regarding: the historical points, exam findings, and any diagnostic results supporting the discharge/admit diagnosis, lab results, the need for outpatient follow up, to return to the emergency department if symptoms worsen or persist or if there are any questions or concerns that arise at home. 06/11 09:05 Order name: CBC with Diff; Complete Time: 09:58 pm1 06/11 09:05 Order name: CMP; Complete Time: 09:58 pm1 06/11 09:05 Order name: Urine Microscopic Only; Complete Time: 10:44 pm1 06/11 09:41 Order name: Urine Dipstick--Ancillary (enter results); Complete Time: 10:56 ms 06/11 09:41 Order name: Urine --Ancillary (enter results); Complete Time: 10:56 ms 06/11 09:05 Order name: Urine Dipstick-Ancillary (obtain specimen); Complete Time: 09:31 pm1 06/11 09:05 Order name: Urine Test (obtain specimen); Complete Time: 09:31 pm1 06/11 09:58 Order name: PO challenge; Complete Time: 10:11 pm1 Administered Medications: 09:39 Drug: NS 0.9% 1000 ml Route: IV; Rate: 1000 ml; Site: right antecubital; rb1 09:39 Drug: Phenergan 12.5 mg Route: IVP; Site: right antecubital; rb1 09:55 Follow up: Response: No adverse reaction; Nausea is decreased rb1 Disposition: 11:50 Co-signature as Attending Physician, Juan José Madison MD. rn Disposition: 06/11/19 10:59 Discharged to Home. Impression: Vomiting, Diarrhea, unspecified. - Condition is Stable. - Discharge Instructions: Food Choices to Help Relieve Diarrhea, Adult, Diarrhea, Adult, Nausea and Vomiting, Adult, Viral Gastroenteritis, Adult. - Prescriptions for promethazine 25 mg Oral Tablet - take 1 tablet by ORAL route every 6 hours As needed; 20 tablet. - Medication Reconciliation Form, Thank You Letter, Antibiotic Education, Prescription Opioid Use form. - Follow up: Emergency Department; When: As needed; Reason: Worsening of condition. Follow up: Private Physician; When: 2 - 3 days; Reason: Recheck today's complaints, Continuance of care, Re-evaluation by your physician. - Problem is new. - Symptoms have improved. Signatures: Dispatcher [employer] EDMS Juan José Madison MD MD rn Maryanne Iqbal RN RN rb1 Barry Aguillon NP CERTIFIED NUCLEAR MEDICINE TECHNOLOGIST pm1 Corrections: (The following items were deleted from the chart) 11:38 10:59 06/11/2019 10:59 Discharged to Home. Impression: Vomiting; Diarrhea, unspecified. rb1 Condition is Stable. Forms are Medication Reconciliation Form, Thank You Letter, Antibiotic Education, Prescription Opioid Use. Follow up: Emergency Department; When: As needed; Reason: Worsening of condition. Follow up: Private Physician; When: 2 - 3 days; Reason: Recheck today's complaints, Continuance of care, Re-evaluation by your physician. Problem is new. Symptoms have improved. pm1
[2019-06-11 12:07] VITALS: O2SAT 99
[2019-06-11 12:09] VITALS: BP 109/57; TEMP 98.3
--- OUTSIDE RECORDS SUMMARY | 2019-06-18 20:14 | XMS REPORT ---
:1995 Author Organization [employer] Care Team Providers Name Role Phone Alex Hammonds Provider Role Unavailable Allergies, Adverse Reactions, Alerts Substance Reaction Event Type Azo Tabs Info Not Available Drug Allergy Problems Problem Type Condition Code Onset Dates Condition Status Problem GERD without esophagitis K21.9 Active Problem Mild intermittent asthma without J45.20 Active complication Problem Seasonal allergies J30.2 Active Assessment Pain in joint of left knee M25.562 Active Assessment Strain of gastrocnemius muscle of S86.112A Active left lower extremity, initial encounter Problem Adult BMI 38.0-38.9 kg/sq m Z68.38 Active Medications Medication Code Code Instructions Start End Status Dosage System Date Date MethylPREDNISolone ND 75256496172 4 MG Orally Active 1 tablet with food or milk in the morning Tylenol # 3 NDC 0 300/30mg PO BID Active one tab PRN Cyclobenzaprine HCl ND 38460245901 10 MG Orally Active 1 tablet PRN as needed Omeprazole ND 30654968600 40 MG Orally Apr 03, Active 1 capsule Once a day 2018 Results No Known Results Summary Purpose [employer] Submission
--- OUTSIDE RECORDS SUMMARY | 2019-06-18 20:14 | XMS REPORT ---
:1995 [facility] Address [address] [place] [address] Dr. Najera [address] [place] [id number] Care Team Providers Name Role Phone Unavailable Unavailable Unavailable Problems This patient has no known problems. Allergies, Adverse Reactions, Alerts This patient has no known allergies or adverse reactions. Medications This patient has no known medications.
== END 2019-06-11 11:38 | disposition home or self-care (01) ==
LOC: ER 08:49
DX: R11.10 Vomiting, unspecified (principal); R19.7 Diarrhea, unspecified
CPT/HCPCS: 85025; 36415; 81025; 80053; 96374; 99284; J2550; J7030; 81003; 81015

== ENCOUNTER 2020-12-21 17:01 | Emergency (ER) | payer SELFPAY ==
--- OUTSIDE RECORDS SUMMARY | 2020-12-21 17:03 | XMS REPORT | Continuity of Care Document ---
:1995 Author Organization [facility] t Address 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 00:00: Medical simplex Simplex 00 Group Gastroesop Gastroesop Problem Active [facility] hageal hageal 7-13 da reflux Reflux 00:00: Medical disease Disease 00 Group without without esophagiti Esophagiti s s Cholelithi Cholelithi Problem Active [facility] asis asis 7-13 da without without 00:00: Medical obstructio Obstructio 00 Gr oup n n Acute Acute Problem Active [facility] cystitis Cystitis 7- da in in 00:00: Medical , , 00 Gr oup antepartum Antepartum Large for Large for Problem Active [facility] gestation Gestation 7-13 da age fetus Age Fetus 00:00: Medi karlene 00 Group Impacted Impacted Problem Active [facility] cerumen [facility]umen [facility] Pharyngiti Pharyngiti Problem Active [facility] s s [facility] Acute Acute Problem Active [facility] upper Upper da respirator Respirator Me dical y y Group infection Infection Reactive Reactive Problem Active [facility] airway Airway da disease Disease Medical Group Vertigo Vertigo Problem Active [facility] Allergies, Adverse Reactions, Alerts Allergy Allergy Status Severity Reaction(s) Onset Inactive Treating Comm ents Source Name Type Date Date Clinician Azo Tabs Adverse Active Info Not [facility] Reaction Available [facility] ent Clinics Azo Allergy Active Mild to Rash [facility] to moderate da substanc Medical e Group Social History Smoking Status Start Date Stop Date Source Never Smoker [facility] Medications Ordered Filled Start Stop Current Ordering Indication Dosage Frequency Signature Comments Components Source Medication Medication Date Date Medication? Clinician (SIG) Name Name Clotrimazol Clotrimazol 2020- No Andreas [address] [facility] :00 [facility] Omeprazole Omeprazole Yes Andreas [address] [facility] 04[facility]03 [facility]: Memoria 00 [facility] Phenergan Phenergan No Phenergan [facility] 25 mg/mL 25 mg/mL 03-17 25 mg/mL da injection injection 13:54: injection Medical solutionTak solutionTak 00 solutionTa Group e 25 mg by e 25 mg by ke 25 mg injection injection by route. route. injection route. ketorolac ketorolac No Q6H ketorolac [facility] 30 mg/mL (1 30 mg/mL (1 03-17 30 mg/mL da mL) mL) 13:52: (1 mL) Medical injection injection 00 injection Group solutionInj solutionInj solutionIn ect 1 mL ect 1 mL ject 1 mL every 6 every 6 every 6 hours by hours by hours by intramuscul intramuscul intramuscu ar route. ar route. lar route. ketorolac ketorolac No 1mL Q6H ketorolac [facility] 30 mg/mL (1 30 mg/mL (1 30 mg/mL da mL) mL) (1 mL) Medical injection injection injection Group solution solution solution Inject 1 mL Inject 1 mL Inject 1 every 6 every 6 mL every 6 hours by hours by hours by intramuscul intramuscul intramuscu ar route. ar route. lar route. Phenergan Phenergan No 25mg Phenergan [facility] 25 mg/mL 25 mg/mL 25 mg/mL da injection injection injection Medical solution solution solution Jassi up Take 25 mg Take 25 mg Take 25 mg by by by injection injection injection route. route. route. 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) Group BP Systolic 2019-03-17 00:00:00 112 mm[Hg] [facility] Body Weight 2019-03-17 00:00:00 3745.6 [oz_av] [facility] Procedures Procedure Date / Time Performed Performing Clinician Sour e Cholecystectomy 2016-08-09 00:00:00 [facility] Adenoid Excision [facility] Plan of Care Planned Activity Planned Date Details Comments Source Instructions [facility] Encounters Start End Encounter Admission Attending Care Care Encounter Source Date/Time Date/Time Type Type Clinicians Facility Department ID 2020-11-07 2020-11-07 Outpatient [facility] [id number] Outpat[facility] Clinics 2020-11-07 2020-11-07 Outpatient [facility] [id number] [facility]00 [facility] Outpati ent Clinics 2020-10-29 2020-10-29 Patient YONG Nice [id number] 00:00:00 00:00:00 Outreach [facility] [id number] [facility] [id number] LARA [id number] 2020-05-13 2020-05-[address] [facility] [id number] [facility] 2020-04-24 2020-04-24 Office YONG Lugo [id number] 15:53:35 16:30:35 Visit [place] [id number] [place] [id number] [facility] [id number] [address] 2020-04-24 2020-04-24 [facility] [id number] 13:37:00 13:37:00 t [employer] [facility] 2020-04-08 2020-04-08 [facility] [id number] 15:50[facility]00 15:50:00 [facility] 2020-04-08 2020-04-08 [facility] [id number] 11:37:00 11:37:00 t [employer] [facility] 2019-05-01 2019-05-01 [facility] [id number] 08:00[facility]00 08:00:00 [facility] 2019-04-25 2019-04-25 [facility] [id number] 09:50:00 09:50:00 [facility] 2019-04-18 2019-04-18 [facility] [id number] 16:05:00 16:05:00 [facility] Clin[facility] 2019-04-17 2019-04-17 [facility] [id number] 08:00:00 08:00:00 [facility] Clin[facility] 2019-03-17 2019-03-17 Natalee [facility] [place] - [id number] M janice 00:00:00 00:00:00 Kira Hernandez, Medical 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 Results This patient has no known results.
--- NOTE | 2020-12-21 18:03 | ER ---
Nurse's Notes [facility] Name: Leighann Greenwood Age: 25 yrs Sex: Female : 1995 Arrival Date: 12/21/2020 Time: 17:06 Bed Waiting Private MD: Diagnosis: Presentation: 12/21 17:37 Chief complaint: Patient states: "I've had cough and a runny nose and my body jameel delgado hurts for the past week" Denies fever. States that her fiance was here yesterday and was diagnosed with bronchitis. Coronavirus screen: Client denies travel out of the [place] in the last 14 days. Ebola Screen: Patient denies travel to an Ebola-affected area in the 21 days before illness onset. Initial Sepsis Screen: Does the patient meet any 2 criteria? No. Patient's initial sepsis screen is negative. Does the patient have a suspected source of infection? Yes: Productive cough/pneumonia. Risk Assessment: Do you want to hurt yourself or someone else? Patient reports no desire to harm self or others. Onset of symptoms was 2020. 17:37 Method Of Arrival: Ambulatory [facility] 17:37 Acuity: DUSTY 4 aj1 Triage Assessment: 17:39 General: Appears in no apparent distress. comfortable, Behavior is calm, cooperative, aj1 appropriate for age. Pain: Denies pain. EENT: Reports nasal congestion nasal discharge. Neuro: Level of Consciousness is awake, alert, obeys commands, Oriented to person, place, time, situation. Cardiovascular: Denies chest pain, Patient's skin is warm and dry. Respiratory: Reports cough that is hacking, persistent Airway is patent Respiratory effort is even, unlabored, Respiratory pattern is regular, symmetrical. GI: No signs and/or symptoms were reported involving the gastrointestinal system. Derm: Skin is pink, warm \\T\\ dry. normal. Musculoskeletal: Circulation, motion, and sensation intact. 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 Flu vaccine is not up to date. - Social history:: Smoking status: Patient/guardian denies using tobacco. Vital Signs: 17:37 BP 116 / 85; Pulse 109; Resp 18; Temp 97.5; Pulse Ox 97% on R/A; Weight 107.5 kg (R); aj1 Height 5 ft. 6 in. (167.64 cm) (R); Pain 0/10; 17:37 Body Mass Index 38.25 (107.50 kg, 167.64 cm) aj1 ED Course: 17:06 Patient arrived in ED. as 17:38 Triage completed. aj1 17:39 Arm band placed on Patient placed in waiting room, Patient notified of wait time. aj1 18:02 Brennon Rivera MD is Attending Physician. aa5 Administered Medications: No medications were administered Outcome: 18:02 Patient left the ED. aa5 Signatures: Twila Mckinney RN RN aj1 Elise Walker Audri RN RN aa5
[2020-12-21 18:19] VITALS: BP 116/85; TEMP 97.5; O2SAT 97
== END 2020-12-21 18:02 | disposition left against medical advice (07) ==
LOC: ER 17:01
DX: Z53.21 Procedure and treatment not carried out due to patient leaving prior to being seen by health care provider (principal)
CPT/HCPCS: 99281

== ENCOUNTER 2022-05-09 01:43 | Emergency (ER) | payer OTHER ==
--- OUTSIDE RECORDS SUMMARY | 2022-05-09 01:46 | XMS REPORT | Continuity of Care Document ---
:1995 Author Organization [facility] t Address [address] [place] [address] Care Team Providers Name Role Phone Andreas Sprague Primary Care Physician Andreas Sprague Attending Clinician Unavailable JERAD Attending Clinician Unavailable Lily Lugo PA-C Attending Clinician LILY LUGO Attending Clinician Unavailable Jesus Nice DO Attending Clinician LISTER_MELISSA Admitting Clinician Unavailable Payers Payer Name Policy Type Policy Number Effective Date Expiration Date S ource Problems Condition Condition Condition Status Onset Resolution Last Treating Co mments Source Name Details Category Date Date Treatment Clinician Date Leg edema, Leg edema, Disease Active U nivers left left 2-18 ity of 00:00: [place] 00 Medical Branch Encounter Encounter Disease Active Uni vers for tubal for tubal 1-31 ity of ligation ligation 00:00: [place] counseling counseling 00 Nc dical Branch Nausea/vom Nausea/vom Disease Active U nivers iting in iting in 8-24 [place] Family Family Disease Active Univers history of history of 8-24 it y of autism autism 00:00: [place] 00 Medical Branch History of History of Disease Active U nivers 2019 novel 2019 novel 824 it y of coronaviru coronaviru [place] 00 [facility] (COVID-19) (COVID-19) Br anch Oligohydra Oligohydra Disease Active U nivers mnios in mnios in 5-27 ity of third third 00:00: [place] trimester trimester 00 [facility] Branch History of History of Disease Active 2018-08 U nivers herpes herpes 0-24 ity of simplex simplex 00:00: [place] infection infection 00 [facility] Branch Not immune Not immune Disease Active 2018-08 U nivers to rubella to rubella 0-24 it y of 00:00: [place] 00 Medical Branch Maternal Maternal Disease Active 2018-08 Overview: Un tammy varicella, varicella, 0-10 Formattin ity of non-immune non-immune 00:00: g of this [place] 00 note Medical might be Branch different from the original. 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 00:00: Medical simplex Simplex 00 Group Cholelithi Cholelithi Problem Active M atag[place] asis asis 7-13 da without without 00:00: Medical obstructio Obstructio 00 Gr oup n n Acute Acute Problem Active [place] cystitis Cystitis 7-13 da in in 00:00: Medical , , 00 Gr oup antepartum Antepartum Large for Large for Problem Active [place] gestation Gestation 7-13 da age fetus Age Fetus 00:00: Medi karlene 00 Group Obesity Obesity Disease Active Overview: Univ ers affecting affecting 4-29 Formattin i ty of , , 00:00: g of this [place] antepartum antepartum 00 note Me dical might be Branch different from the original. 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 Impacted Impacted Problem Active [place] cerumen [...] ents Source Name Type Date Date Clinician CRANBERR DRUG Active Rash Univers Y 04-27 ity of EXTRACT- 00:00: [place] MULTIVIT 00 Medical DEGROOT Branch Cranberr Propensi Active Rash Univer s y ty to 04-27 ity of Extract- adverse 00:00: [place] Multivit reaction 00 Medica l degroot s Branch Phenazop Propensi Active Rash Univer s yridine ty to 12-05 ity of Hcl adverse 00:00: [place] reaction 00 Medical s Branch PHENAZOP DRUG Active Rash Univers YRIDINE INGREDI 12-05 ity of HCL 00:00: [place] 00 Medical Branch [id number] Drug Active Unknown Common allergy [facility] Azo Allergy Active Mild to Rash [place] to moderate da substan Medical e Group Azo Tabs Adverse Active Info Not Commo n Reaction Available Sp[facility] Social History Social Habit Start Date Stop Date Quantity Comments Source History SDOH University o f Alcohol Frequency [place] M edical Branch History SDUT University o f Alcohol Std [place] Medical Drinks Branch History [facility] University o f Alcohol Binge [place] Medic al Branch History of [facility] - Tobacco Use [facility] Sex Assigned At Common Sp torri - [facility] Exposure to 2021-12-01 2021-12-11 Not sure University of SARS-CoV-2 00:00:00 10:17:00 [facility] (event) [place] Alcohol intake 2021-12-11 2021-12-11 Ex-drinker University of 00:00:00 00:00:00 (finding) [place] [facility] Alcohol Comment 2021-09-08 2021-09-08 not during Universit y of 00:00:00 00:00:00 [place] [facility] Tobacco use and 2014-12-05 2014-12-05 Never used Universit y of exposure 00:00:00 00:00:00 [place] [facility] Smoking Status Start Date Stop Date Source Never Smoker [facility] - [facility] Medications Ordered Filled Start Stop Current Ordering Indication Dosage Frequency Signature Comments Components Source Medication Medication Date Date Medication? Clinician (SIG) Name Name metroNIDAZO Yes [id number] 500mg Take 1 Univers LE 500 mg 5-06 tablet by ity o f tablet 00:00: mouth [place] 00 every 12 Medical (twelve) Branch hours. Yes [id number] 1{tbl} Take 1 U nivers vitamin 3-18 tablet by ity of w/FA tablet 00:00: mouth [place] 00 daily. Medical Branch docusate Yes [id number] 240mg Take 1 Un tammy calcium 240 3-18 capsule by it y of mg capsule 00:00: mouth [place] 00 daily as Medical needed for Branch Constipati on. ferrous Yes [id number] 325mg Take 1 Uni vers sulfate 325 3-18 tablet by ity of mg (65 mg 00:00: mouth 2 [place] iron) 00 (two) Medical tablet times Branch daily. ibuprofen Yes [id number] 600mg Take 1 U nivers 600 mg 3-18 tablet by ity of tablet 00:00: mouth [place] 00 every 6 Medical (six) Branch hours as needed (Pain). Take with food or milk. Yes [id number] 1{tbl} Take 1 U nivers vitamin 3-18 tablet by ity of w/FA tablet 00:00: mouth [place] 00 daily. Medical Branch docusate Yes [id number] 240mg Take 1 Un tammy calcium 240 3-18 capsule by it y of mg capsule 00:00: mouth once [place] 00 daily as Medical needed for Branch Constipati on. ferrous Yes [id number] 325mg Take 1 Uni vers sulfate 325 3-18 tablet by ity of mg (65 mg 00:00: mouth 2 [place] iron) 00 (two) Medical tablet times Branch daily. ibuprofen Yes [id number] 600mg Take 1 U nivers 600 mg 3-18 tablet by ity of tablet 00:00: mouth [place] 00 every 6 Medical (six) Branch hours as needed (Pain). Take with food or milk. Yes [id number] 1{tbl} Take 1 U nivers vitamin 3-18 tablet by ity of w/FA tablet 00:00: mouth [place] 00 daily. Medical Branch docusate Yes [id number] 240mg Take 1 Un tammy calcium 240 3-18 capsule by it y of mg capsule 00:00: mouth once [place] 00 daily as Medical needed for Branch Constipati on. ferrous Yes [id number] 325mg Take 1 Uni vers sulfate 325 3-18 tablet by ity of mg (65 mg 00:00: mouth 2 [place] iron) 00 (two) Medical tablet times Branch daily. ibuprofen Yes [id number] 600mg Take 1 U nivers 600 mg 3-18 tablet by ity of tablet 00:00: mouth [place] 00 every 6 Medical (six) Branch hours as needed (Pain). Take with food or milk. ProAir HFA ProAir HFA No 2{puffs ProAir HFA 108 (90 108 (90 4-01 _as_nee 108 (90 Base) Base) 00:00: ded} Base) MCG/ACT MCG/ACT 00 MCG/ACT Clotrimazol Clotrimazol 0 2020- No Andreas 1 Common e e 04-08 Sprague applicatio Spirit 00:00: 00:00 n - [facility] 00 :00 [facility] Omeprazole Omeprazole 2018-0 Yes Andreas 1 capsule Common 04-03 Sprague Spirit 00:00: - [facility] 00 [facility] Phenergan Phenergan 0 No Phenergan [place] 25 mg/mL 25 mg/mL 03-17 25 mg/mL da injection injection 13:54: injection Medical solutionTak solutionTak 00 solutionTa Group e 25 mg by e 25 mg by ke 25 mg injection injection by route. route. injection route. ketorolac ketorolac 2018-0 No Q6H ketorolac [place] 30 mg/mL (1 30 mg/mL (1 03-17 30 mg/mL da mL) mL) 13:52: (1 mL) Medical injection injection 00 injection Group solutionInj solutionInj solutionIn ect 1 mL ect 1 mL ject 1 mL every 6 every 6 every 6 hours by hours by hours by intramuscul intramuscul intramuscu ar route. ar route. lar route. Omeprazole Omeprazole No 1{capsu QD Omeprazole 40 MG 40 MG le} 40 MG ketorolac ketorolac No 1mL Q6H ketorolac [place] [...] by injection injection injection route. route. route. Immunizations Ordered Filled Immunization Date Status Comments [facility] e Immunization Name Name Influenza Virus 2019-05-31 Completed Universit y of Vaccine Quad .5 mL 00:00:00 [facility] 6+ MO Branch Influenza Virus 2019-05-31 Completed Universit y of Vaccine Quad .5 mL 00:00:00 [facility] 6+ MO Branch Influenza Virus 2019-05-31 Completed Universit y of Vaccine Quad .5 mL 00:00:00 [facility] 6+ MO Branch Vital Signs Vital Name Observation Time Observation Value Comments Source Systolic blood 2021-12-11 15:39:00 109 mm[Hg] Univer sity pressure [place] [facility] Diastolic blood 2021-12-11 15:39:00 71 mm[Hg] Unive rsity of [facility] Heart rate 2021-12-11 15:39:00 71 /min [facility] Body temperature 2021-12-11 15:39:00 36.61 Carmen [facility] Respiratory rate 2021-12-11 15:39:00 18 /min [facility] Body height 2021-12-11 15:39:00 167.6 cm [facility] Body weight 2021-12-11 15:39:00 117.028 kg [facility] BMI 2021-12-11 15:39:00 41.64 kg/m2 [facility] BP Diastolic 2019-03-17 00:00:00 69 mm[Hg] [facility] Height 2019-03-17 00:00:00 66 [in_i] [facility] BMI (Body Mass 2019-03-17 00:00:00 37.8 kg/m2 [facility]) Group BP Systolic 2019-03-17 00:00:00 112 mm[Hg] [facility] Body Weight 2019-03-17 00:00:00 3745.6 [oz_av] [facility] Procedures Procedure Date / Time Performed Performing Clinician Sour e Cholecystectomy 2016-08-09 00:00:00 [facility] Adenoid Excision [facility] Plan of Care Planned Activity Planned Date Details Comments Source Instructions [facility] Encounters Start End Encounter Admission Attending Care Care Encounter Source Date/Time Date/Time Type Type Clinicians Facility Department ID 2022-01-23 Outpatient Sprague, STLMLC [facility] [id number] Common 09:35:00 Andreas [facility] 2021-11-20 Outpatient Sprague, STLMLC [facility] [id number] Common 09:53:01 Andreas [facility] 2021-09-03 Outpatient Sprague, STLMLC [facility] [id number] Common 14:15:45 Andreas [id number] [facility] 2021-09-03 Outpatient Sprague, STLMLC [facility] [id number] Common 13:25:56 Andreas [id number] [facility] 2022-05-01 2022-05-01 (TEL) STLMLC STL[facility]C [id number] Co mmon 00:00:00 00:00:00 [facility] 2022-02-17 2022-02-17 Outpatient LEONEL LOOMIS [facility] 71 [place] 10:25:00 10:25:00 SSA 0712 da [facility] Outre h Program 2021-12-12 2021-12-12 Case GIGI Lugo [id number] Univers 00:00:00 00:00:00 Management Lily PEDIATRIC [id number] ity of [facility] [id number] [id number] [place] [address] Branch [facility] 2021-12-11 2021-12-11 Office Scot WIALEX [id number] Univers 10:00:00 10:55:36 Visit Lily [place] [id number] i ty of [id number] [place] [id number] [address] 2021-12-11 2021-12-11 Outpatient R SCOT [facility] [id number] Univers 10:00:00 10:55:36 LILY ity of [place] [facility] 2021-11-20 2021-11-20 ambulatory STLMLC STLMLC [id number] Common 00:00:00 00:00:00 [facility] 2021-11-20 2021-11-20 ambulatory STLMLC STLMLC [id number] Common 00:00:00 00:00:00 [facility] 2021-09-11 2021-09-11 ambulatory STLMLC STLMLC [id number] Common 00:00:00 00:00:00 [facility] 2021-06-27 2021-06-27 ambulatory STLMLC STLMLC [id number] Common 00:00:00 00:00:00 [facility] 2021-03-17 2021-03-17 Outpatient STLMLC STLMLC [id number] Common 00:00:00 00:00:00 [facility] 2021-03-05 2021-03-05 Outpatient STLMLC STLMLC [id number] Common 00:00:00 00:00:00 [facility] 2021-02-19 2021-02-19 Outpatient STLMLC STLMLC [id number] Common 00:00:00 00:00:00 [facility] 2021-02-18 2021-02-18 Outpatient STLMLC STLMLC [id number] Common 00:00:00 00:00:00 [facility] 2021-02-18 2021-02-18 Outpatient STLMLC STLMLC [id number] Common 00:00:00 00:00:00 [facility] 2020-11-07 2020-11-07 Outpatient STLMLC STLMLC [id number] Common 00:00:00 00:00:00 [facility] 2020-11-07 2020-11-07 Outpatient STLMLC STLMLC [id number] Common 00:00:00 00:00:00 [facility] 2020-10-29 2020-10-29 [facility] [id number] 00:00:00 00:00:00 Outreach Jesus [facility] [id number] [facility] [id number] PAVCARLOS [id number] 2020-05-13 2020-05-13 Outpatient STLMLC STLMLC [id number] Common 00:00:00 00:00:00 [facility] 2020-04-24 2020-04-24 [facility] [id number] 15:53:35 16:30:35 Visit Lily Lang [id number] [place] [id number] [place] [id number] [address] 2020-04-24 2020-04-24 [facility] [id number] Common 13:37:00 13:37:[address] [facility] 2020-04-08 2020-04-08 [facility] [id number] Common 15:50:00 15:50:[address] [facility] 2020-04-08 2020-04-08 [facility] [id number] Common 11:37:00 11:37:[address] [facility] 2019-05-01 2019-05-01 Out[facility] [id number] Common 08:00:00 08:00:00 [facility] 2019-04-25 2019-04-25 [facility] [id number] Common 09:50:00 09:50:00 t 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 Results This patient has no known results.
[2022-05-09 02:31] LABS: Absolute Lymphocytes (CBC) 3.6 K/uL (0.7-4.9); Hematocrit 34.5 % (36.0-45.0); Lymphocytes % 37.9 % (15.3-44.8); MCV 80.8 fL (80-100); MPV 7.9 fL (7.6-11.3); RBC Red Blood Cell Count 4.27 M/uL (3.86-4.86)
[2022-05-09 02:44] LABS: SARS-CoV-2 Antigen Rapid Res Negative (Negative)
[2022-05-09 02:46] LABS: Albumin 3.7 g/dL (3.4-5.0); Bilirubin Total 0.8 mg/dL (0.2-1.0); Potassium 3.7 mmol/L (3.5-5.1); Protein, Total 7.6 g/dL (6.4-8.2)
[2022-05-09] MEDS ORDERED: predniSONE 20 MG TAB ONE (03:08)
[2022-05-09] MEDS ORDERED: METHYLPREDNISOLONE 125 MG INJ ONE (03:08)
[2022-05-09] MEDS ORDERED: FAMOTIDINE 20 MG/2 ML VIAL IV ONE (03:09)
[2022-05-09] MEDS ORDERED: AZITHROMYCIN 250 MG TAB ONE (03:09)
[2022-05-09] MEDS ORDERED: IPRATROPIUM BROM 0.5MG/2.5ML ONE (03:09)
[2022-05-09] MEDS ORDERED: ALBUTEROL 2.5 MG/3 ML NEB SOL ONE (03:09)
[2022-05-09] MEDS ORDERED: NA CHLORIDE 0.9% 1,000 ML ONE (03:09)
[2022-05-09 03:11] LABS: Urine Blood 1+ (Negative); Urine Glucose Negative (Negative); Urine Protein Negative (Negative); Urine Specific Gravity >=1.030 (1.005-1.030)
[2022-05-09] MEDS ORDERED: OSELTAMIVIR 75 MG CAP ONE (03:43)
--- NOTE | 2022-05-09 04:27 | ER ---
Nurse's Notes [facility] Name: Leighann Greenwood Age: 26 yrs Sex: Female : 1995 Arrival Date: 05/09/2022 Time: 01:46 Bed 15 Private MD: Diagnosis: Cough;Acute bronchitis, unspecified;Influenza due to unidentified influenza virus with other respiratory manifestations-Flu B Presentation: 05/09 01:51 Chief complaint: Patient states: "I have been sick since the , I have a cough that tw5 wont go away. I feel like there is stuff in my chest and it hernandez to breath.". Coronavirus screen: Vaccine status: Patient reports being unvaccinated. Ebola Screen: Patient negative for fever greater than or equal to 101.5 degrees Fahrenheit, and additional compatible Ebola Virus Disease symptoms Patient denies exposure to infectious person. Patient denies travel to an Ebola-affected area in the 21 days before illness onset. Initial Sepsis Screen: Does the patient meet any 2 criteria? No. Patient's initial sepsis screen is negative. Does the patient have a suspected source of infection? No. Patient's initial sepsis screen is negative. Risk Assessment: Do you want to hurt yourself or someone else? Patient reports no desire to harm self or others. Onset of symptoms was April 26, 2022. 01:51 Acuity: DUSTY 3 tw5 01:51 Method Of Arrival: Ambulatory tw5 Triage Assessment: 01:53 General: Appears in no apparent distress. obese, Behavior is calm, cooperative, tw5 appropriate for age. Pain: Pain currently is 4 out of 10 on a pain scale. Cardiovascular: Heart tones S1 S2 present. 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 - Social history:: Smoking status: Patient denies any tobacco usage or history of. Screenin:00 Abuse screen: Denies threats or abuse. Nutritional screening: No deficits noted. ke1 Tuberculosis screening: No symptoms or risk factors identified. Fall Risk None identified. Assessment: 04:08 Reassessment: Patient denies pain at this time. Patient states feeling better. Patient ke1 states symptoms have improved. 04:10 Pain: Pain: Denies pain. ke1 04:38 Reassessment: Md asked to wait for CT result before d/c patient. ke1 Vital Signs: 01:51 BP 113 / 65; Pulse 72; Resp 18; Temp 98.1; Pulse Ox 98% on R/A; Weight 115 kg; Height 5 tw5 ft. 6 in. (167.64 cm); Pain 4/10; 01:51 Body Mass Index 40.92 (115.00 kg, 167.64 cm) tw5 ED Course: 01:46 Patient arrived in ED. bp1 01:53 Triage completed. tw5 01:53 Arm band placed on right wrist. tw5 01:55 Edwin Alvarado, DEA is Primary Nurse. as6 01:59 Brennon Rivera MD is Attending Physician. ronal 02:00 Bed in low position. Call light in reach. Client placed on continuous cardiac and pulse ke1 oximetry monitoring. NIBP monitoring applied. media monitor on. Pulse ox on. NIBP on. 02:00 Patient maintains SpO2 saturation greater than 95% on room air. ke1 02:20 Inserted saline lock: 18 gauge in right antecubital area, using aseptic technique. as6 Blood collected. 02:24 Flu Sent. as6 02:24 SARS RAPID Sent. as6 02:24 Comprehensive Metabolic Panel Sent. as6 02:24 CBC with Diff Sent. as6 05:26 No provider procedures requiring assistance completed. IV discontinued. ke1 Administered Medications: 03:34 Drug: Albuterol - atroVENT (ipratropium) (3:1) (2.5 mg - 0.5 mg) 3 ml Route: Nebulizer; ke1 04:11 Follow up: Response: Marked relief of symptoms ke1 03:34 Drug: SOLU-Medrol (methylPrednisoLONE) 125 mg Route: IVP; Site: right antecubital; ke1 04:11 Follow up: Response: Marked relief of symptoms ke1 03:34 Drug: predniSONE 40 mg Route: PO; ke1 04:11 Follow up: Response: Marked relief of symptoms ke1 03:34 Drug: Pepcid (famotidine) 20 mg Route: IVP; Site: right antecubital; ke1 04:10 Follow up: Response: Marked relief of symptoms ke1 03:34 Drug: Zithromax (azithromycin) 500 mg Route: PO; ke1 04:10 Follow up: Response: No adverse reaction ke1 03:35 Drug: NS 0.9% 1000 ml Route: IV; Rate: 1 bolus; Site: right antecubital; ke1 05:27 Follow up: IV Status: Completed infusion ke1 03:53 Drug: Tamiflu (oseltamivir) 75 mg Route: PO; ke1 04:32 Follow up: Response: No adverse reaction ke1 Medication: 05:27 VIS not applicable for this client. ke1 Outcome: 04:27 Discharge ordered by MD. villeda 05:26 Discharged to home ambulatory. ke1 05:26 Condition: good 05:26 Discharge instructions given to patient. 05:27 Patient left the ED. ke1 Signatures: Brennon Rivera MD MD cha Paniauga, Brittany bp1 Wood, Tiffany tw5 Edwin Alvarado RN RN as6 Min Mccann RN RN ke1 Corrections: (The following items were deleted from the chart) 04:10 04:09 Pain: Pain began ke1 ke1
--- NOTE | 2022-05-09 04:27 | EDPHYS ---
Physician Documentation [facility] Name: Leighann Greenwood Age: 26 yrs Sex: Female : 1995 Arrival Date: 05/09/2022 Time: 01:46 Bed 15 Private MD: SARAH Physician Brennon Rivera HPI: 05/09 02:34 This 26 yrs old Female presents to ER via Ambulatory with complaints of Cough, ronal Chest Tightness, Back Pain. 02:34 The patient or guardian reports cough, difficulty breathing. Onset: The ronal symptoms/episode began/occurred 5 day(s) ago. 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 - Social history:: Smoking status: Patient denies any tobacco usage or history of. ROS: 02:37 Constitutional: Negative for fever, chills, and weight loss, Eyes: Negative for injury, ronal pain, redness, and discharge, ENT: Negative for injury, pain, and discharge, Neck: Negative for injury, pain, and swelling, Cardiovascular: Negative for chest pain, palpitations, and edema, Abdomen/GI: Negative for abdominal pain, nausea, vomiting, diarrhea, and constipation, Back: Negative for injury and pain, : Negative for injury, bleeding, discharge, and swelling, MS/Extremity: Negative for injury and deformity, Skin: Negative for injury, rash, and discoloration, Neuro: Negative for headache, weakness, numbness, tingling, and seizure, Psych: Negative for depression, anxiety, suicide ideation, homicidal ideation, and hallucinations, Allergy/Immunology: Negative for hives, rash, and allergies, Endocrine: Negative for neck swelling, polydipsia, polyuria, polyphagia, and marked weight changes, Hematologic/Lymphatic: Negative for swollen nodes, abnormal bleeding, and unusual bruising. 02:37 Respiratory: Positive for cough, shortness of breath, at rest. Exam: 02:37 Constitutional: This is a well developed, well nourished patient who is awake, alert, ronal and in no acute distress. Head/Face: Normocephalic, atraumatic. Eyes: Pupils equal round and reactive to light, extra-ocular motions intact. Lids and lashes normal. Conjunctiva and sclera are non-icteric and not injected. Cornea within normal limits. Periorbital areas with no swelling, redness, or edema. ENT: Nares patent. No nasal discharge, no septal abnormalities noted. Tympanic membranes are normal and external auditory canals are clear. Oropharynx with no redness, swelling, or masses, exudates, or evidence of obstruction, uvula midline. Mucous membranes moist. Neck: Trachea midline, no thyromegaly or masses palpated, and no cervical lymphadenopathy. Supple, full range of motion without nuchal rigidity, or vertebral point tenderness. No Meningismus. Chest/axilla: Normal chest wall appearance and motion. Nontender with no deformity. No lesions are appreciated. Cardiovascular: Regular rate and rhythm with a normal S1 and S2. No gallops, murmurs, or rubs. Normal PMI, no JVD. No pulse deficits. Respiratory: Lungs have equal breath sounds bilaterally, clear to auscultation and percussion. No rales, rhonchi or wheezes noted. No increased work of breathing, no retractions or nasal flaring. Abdomen/GI: Soft, non-tender, with normal bowel sounds. No distension or tympany. No guarding or rebound. No evidence of tenderness throughout. Back: No spinal tenderness. No costovertebral tenderness. Full range of motion. Skin: Warm, dry with normal turgor. Normal color with no rashes, no lesions, and no evidence of cellulitis. MS/ Extremity: Pulses equal, no cyanosis. Neurovascular intact. Full, normal range of motion. Neuro: Awake and alert, GCS 15, oriented to person, place, time, and situation. Cranial nerves II-XII grossly intact. Motor strength 5/5 in all extremities. Sensory grossly intact. Cerebellar exam normal. Normal gait. Psych: Awake, alert, with orientation to person, place and time. Behavior, mood, and affect are within normal limits. 02:37 Musculoskeletal/extremity: DVT Exam: No signs of deep vein thrombosis. no pain, no swelling, no tenderness, negative Homans' sign noted on exam, no appreciated bluish discoloration, no erythema, no increased warmth. Vital Signs: 01:51 BP 113 / 65; Pulse 72; Resp 18; Temp 98.1; Pulse Ox 98% on R/A; Weight 115 kg; Height 5 tw5 ft. 6 in. (167.64 cm); Pain 410; 01:51 Body Mass Index 40.92 (115.00 kg, 167.64 cm) tw5 MDM: 01:59 Patient medically screened. [facility] 02:38 Data reviewed: vital signs, nurses notes, lab test result(s), radiologic studies. [facility] 05/09 02:02 Order name: CBC with Diff [facility] 05/09 02:02 Order name: Comprehensive Metabolic Panel [facility] 05/09 02:02 Order name: SARS RAPID [facility] 05/09 02:02 Order name: Flu [facility] 05/09 02:32 Order name: CBC with Automated Diff; Complete Time: 02:34 [facility] 05/09 02:44 Order name: SARS-COV-2 Antigen Rapid; Complete Time: 03:13 [facility] 05/09 02:02 Order name: Chest Single View XRAY [facility] 05/09 02:02 Order name: CT Chest For PE Angio [facility] 05/09 02:45 Order name: Influenza Screen (A ; Complete Time: 03:13 [facility] 05/09 02:46 Order name: Comprehensive Metabolic Panel; Complete Time: 03:13 [facility] 05/09 03:11 Order name: Urine Dipstick-Ancillary; Complete Time: 03:13 [facility] 05/09 02:02 Order name: Urine Dipstick-Ancillary (obtain specimen); Complete Time: 03:35 [facility] 05/09 02:02 Order name: Urine Test (obtain specimen); Complete Time: 03:35 [facility] Administered Medications: 03:34 Drug: Albuterol - atroVENT (ipratropium) (3:1) (2.5 mg - 0.5 mg) 3 ml Route: Nebulizer; ke1 04:11 Follow up: Response: Marked relief of symptoms ke1 03:34 Drug: SOLU-Medrol (methylPrednisoLONE) 125 mg Route: IVP; Site: right antecubital; ke1 04:11 Follow up: Response: Marked relief of symptoms ke1 03:34 Drug: predniSONE 40 mg Route: PO; ke1 04:11 Follow up: Response: Marked relief of symptoms ke1 03:34 Drug: Pepcid (famotidine) 20 mg Route: IVP; Site: right antecubital; ke1 04:10 Follow up: Response: Marked relief of symptoms ke1 03:34 Drug: Zithromax (azithromycin) 500 mg Route: PO; ke1 04:10 Follow up: Response: No adverse reaction ke1 03:35 Drug: NS 0.9% 1000 ml Route: IV; Rate: 1 bolus; Site: right antecubital; ke1 05:27 Follow up: IV Status: Completed infusion ke1 03:53 Drug: Tamiflu (oseltamivir) 75 mg Route: PO; ke1 04:32 Follow up: Response: No adverse reaction ke1 Disposition Summary: 05/09/22 04:27 Discharge Ordered Location: Home [facility] Problem: new [facility] Symptoms: have improved ronal Condition: Stable ronal Diagnosis - Cough ronal - Acute bronchitis, unspecified ronal - Influenza due to unidentified influenza virus with other respiratory manifestations ronal - Flu B Followup: [facility] - With: Private Physician - When: As needed - Reason: Recheck today's complaints, Continuance of care, Re-evaluation by your physician Discharge Instructions: - Discharge Summary Sheet ronal - Acute Bronchitis, Adult ronal - Cool Mist Vaporizer ronal - Acute Bronchitis, Adult, [id number] ronal - Influenza, Adult ronal - Influenza, Adult, [id number] ronal - Cough, Adult, [id number] ronal - Cough, Adult [facility] Forms: - Medication Reconciliation Form [facility] - Thank You Letter ronal - Antibiotic Education ronal - Prescription Opioid Use ronal - Work release form ke1 Prescriptions: - albuterol sulfate 90 mcg/actuation Inhalation HFA aerosol inhaler - inhale 2 puff by INHALATION route every 6 hours; 1 Pump; Refills: 0, Product ronal Selection Permitted - Zithromax Z-Rico 250 mg Oral Tablet - take 1 tablet by ORAL route as directed for 5 days Day 1 - take two (2) tablets ronal one time. Day 2, 3, 4 , 5 take one (1) tablet once daily.; 6 tablet; Refills: 0, Product Selection Permitted - Prednisone 20 mg Oral Tablet - take 2 tablets by ORAL route once daily for 5 days; 10 tablet; Refills: 0, ronal Product Selection Permitted - Guaifenesin AC 10-100 mg/5 mL Oral Liquid - take 7.5 milliliter by ORAL route every 6 hours As needed; 180 milliliter; ronal Refills: 0, Product Selection Permitted - Tamiflu 75 mg Oral Capsule - take 1 tablet by ORAL route every 12 hours for 5 days; 10 tablet; Refills: 0, ronal Product Selection Permitted Signatures: Dispatcher [employer] Brennon Felix MD MD cha Wood, Tiffany tw5 Mni Mccann RN RN ke1
[2022-05-09 13:23] VITALS: BP 113/65; TEMP 98.1; O2SAT 98
--- NOTE | 2022-05-09 21:07 | RAD REPORT ---
EXAM DESCRIPTION: RAD - Chest Single View - 05/09/2022 2:51 am CLINICAL HISTORY: 26 years, Female, COUGH COMPARISON: None. FINDINGS: Single view of the chest was obtained portable. No prior films are available for compariso n. The cardiomediastinal silhouette demonstrate to be unremarkable. The heart is not enlarged. The th oracic aorta is unremarkable. The pulmonary vasculature is normal distribution. Costophrenic angles a re sharp. No areas of consolidation or masses are seen. The rest of the soft tissue and bony stru ctures demonstrate to be unremarkable. IMPRESSION: No acute cardiopulmonary disease identified. Electronically signed by: Tommie Mccann MD 05/09/2022 3:22 AM CDT Due to temporary technical issues with the PACS/Fluency reporting system, reports are being signed by the in house radiologists without review as a courtesy to insure prompt reporting. The interpreting radiologist is fully responsible for the content of the report.
--- NOTE | 2022-05-09 21:13 | RAD REPORT ---
EXAM DESCRIPTION: CT - Chest For Pe Angio - 05/09/2022 3:47 am CLINICAL HISTORY: 26 years Female dyspnea. TECHNIQUE: Following the administration of intravenous contrast, multiple high-resolution axial imag es of the chest were performed followed by sagittal and coronal reconstructed images. Coronal oblique MIP images were also performed. The CT study is performed according to ALARA (as low as reasonably a chievable) or ALARA/IMAGE GENTLY, with automatic adjustment of mA and/or kV according to patient size . Performed on: 05/09/2022 at 3:45 AM COMPARISON: Chest with contrast performed on 09/29/[address] chest angiography performed on 03/20/20 17 FINDINGS: There is suboptimal contrast opacification of the pulmonary arteries on this examination . No definite intra-arterial filling defects are identified to suggest acute or chronic pulmonary emb marie. Evaluation of the segmental and subsegmental pulmonary artery branches is limited for evaluation of pulmonary emboli. The thoracic aorta is normal in caliber and contour without evidence of aneurys m or dissection. The lungs are well expanded and are clear. There is no evidence of a pneumothorax. There are no pleur al effusions. The central airways are patent. The heart is normal in size. There is no pericardial effusion. There is no reflux of contrast into th e hepatic veins to suggest right heart strain.The RV/LV ratio is within normal limits. There is no evidence of hilar, mediastinal or axillary lymphadenopathy. No acute osseous abnormality is identified. The visualized upper abdominal structures are unremarkable. IMPRESSION: 1. Suboptimal contrast opacification of the pulmonary arteries on this examination. No definite intra-arterial filling defects are identified to suggest acute or chronic pulmonary emboli. Evaluation of the segmental and subsegmental pulmonary artery branches is limited for evaluation of pulmonary emboli. 2. No evidence of thoracic aortic aneurysm or aortic dissection. 3. No evidence of acute intrathoracic disease. Electronically signed by: oRhini Omalley DO 05/09/2022 5:12 AM CDT Due to temporary technical issues with the PACS/Fluency reporting system, reports are being signed by the in house radiologists without review as a courtesy to insure prompt reporting. The interpreting radiologist is fully responsible for the content of the report.
== END 2022-05-09 05:27 | disposition home or self-care (01) ==
LOC: ER 01:43
DX: J20.9 Acute bronchitis, unspecified (principal); J10.1 Influenza due to other identified influenza virus with other respiratory manifestations; Z20.822 Contact with and (suspected) exposure to COVID-19
CPT/HCPCS: 96361; 85025; 36415; 81003; 80053; 87804 ×2; 71275; 71045; 94640; 96375; 96374; 99285; 87811; Q9967; J7512; J7030; J2930